=== PATIENT | female | born 1990 | race Caucasian/White ===

== ENCOUNTER 2022-06-07 10:13 | Day surgery (SDC) | payer OTHER | END 2022-06-07 13:00 | disposition home health service (06) | LOC: CSHLD/OP 10:13 | PROVIDERS: ATTEND Obstetrics & Gynecology | DX: O36.8120 Decreased fetal movements, second trimester, not applicable or unspecified (principal); Z3A.25 25 weeks gestation of pregnancy; Z88.0 Allergy status to penicillin | CPT/HCPCS: 76815; 99282 ==

== ENCOUNTER 2022-07-02 21:45 | Emergency (ER) | payer OTHER ==
[2022-07-02 22:42] LABS: #Eosinphils 0.3 10x3/uL (0.0-0.5); #Monocytes 0.9 10x3/uL (0.0-1.1); %Basophils 0.3 % (0.0-2.0); %Eosinophils 2.3 % (0.0-6.0); %Lymphocytes 6.7 % (18.0-47.0); %Monocytes 8.5 % (0.0-10.0); %Neutrophils 81.6 % (40.0-75.0); Mean Corpuscular HGB CONC 33.7 g/dL (32.0-36.0); Mean Corpuscular Hemoglobin 31.3 pg (27.0-33.0); Mean Corpuscular Volume 93.1 fl (81.6-98.3); Mean Platelet Volume 10.4 fl (7.4-10.4); Platelet Count 173 10x3/uL (150-450); RBC Distribution Width 12.2 % (11.5-14.5); Red Blood Cell (RBC) Count 3.19 10x6/uL (3.90-5.03)
[2022-07-02 22:47] LABS: ALT (SGPT) 10 U/L (8-55); AST (SGOT) 10 U/L (5-34); Albumin 3.1 g/dL (3.5-5.0); Alkaline Phosphatase 81 U/L (40-110); Anion Gap 11 mmol/L (10-20); BUN (Urea Nitrogen) 6 mg/dL (7.0-18.7); Bilirubin, Total 0.2 mg/dL (0.2-1.2); Calc. Creatinine Clearance 0 mL/min (70-130); Calcium 8.6 mg/dL (7.8-10.44); Carbon Dioxide 20 mmol/L (22-29); Chloride 108 mmol/L (98-107); Estimated GFR 121; Glucose 104 mg/dL (70-105); Potassium 3.4 mmol/L (3.5-5.1); Protein, Total 6.1 g/dL (6.0-8.3); Sodium 136 mmol/L (136-145)
[2022-07-02 23:15] LABS: SARS-CoV-2 NAA Rapid Test Not Detected (NotDetected)
[2022-07-02] MEDS ORDERED: Acetaminophen 500 MG TAB ONE (23:36)
== END 2022-07-03 01:27 | disposition home or self-care (01) ==
LOC: CSHERS 21:45
DX: O99.513 Diseases of the respiratory system complicating pregnancy, third trimester (principal); J10.1 Influenza due to other identified influenza virus with other respiratory manifestations; Z20.822 Contact with and (suspected) exposure to COVID-19; Z3A.29 29 weeks gestation of pregnancy
CPT/HCPCS: 36415; 71045; 80053; 85025; 93005; 96360

== ENCOUNTER 2022-09-15 01:09 | Inpatient (IN) | payer OTHER ==
[~2022-09-15 01:09] MED LIST: Acetaminophen 500 MG TAB PO PRN; Butorphanol Tartrate 1 MG/ML VIAL SLOW IVP PRN; Carboprost 250 MCG/ML AMP IM PRN; Diphenoxylate HCl/Atropine Tablet PO PRN; Docusate 100 MG CAP PO PRN; HYDROcodone/Acetaminophen 5/325 mg Tablet PO PRN; Ibuprofen 800 MG TAB PO PRN; Lidocaine 1% (PF) 30 ML VIAL SC PRN; Methylergonovine 0.2 MG/ML VIAL IM PRN; Misoprostol 200 MCG TAB PR PRN; Ondansetron PF 4 MG/2 ML Vial IVP PRN; Promethazine HCl 25 MG/ML VIAL IM PRN; Tranexamic Acid 1,000 MG in Sodium Chloride 0.9% 250 ML 250 ML IVPB PRN; hydrALAZINE 20 MG/ML VIAL SLOW IVP PRN
[2022-09-15] MEDS ORDERED: NS w/ Oxytocin 30 units 500 ML IV SCH ×3 (01:15→07:46)
[2022-09-15] MEDS ORDERED: Lactated Ringer's 1,000 ML IV SCH (01:15)
[2022-09-15 01:27] VITALS: BMI 34.1
[2022-09-15 01:45] LABS: Hemoglobin 11.2 g/dL (12.0-15.5); Mean Corpuscular HGB CONC 31.7 g/dL (32.0-36.0); Mean Corpuscular Hemoglobin 28.1 pg (27.0-33.0); Mean Corpuscular Volume 88.7 fl (81.6-98.3); Mean Platelet Volume 10.3 fl (7.4-10.4); Platelet Count 233 10x3/uL (150-450); RBC Distribution Width 13.7 % (11.5-14.5); Red Blood Cell (RBC) Count 3.98 10x6/uL (3.90-5.03); White Blood Cell (WBC) Count 12.9 10x3/uL (3.5-10.5)
[2022-09-15] MEDS ORDERED: Fentanyl 2 mcg/Bup 0.1% Cadd 100 ML ONE (01:52)
[2022-09-15] MEDS ORDERED: Fentanyl 100 MCG/2 ML VIAL ONE (02:03)
[2022-09-15] MEDS ORDERED: Bupivacaine 0.75% W/DEXTROSE 8.25% 2 ML AMP ONE (02:04)
[2022-09-15 02:15] LABS: HBSAg Index 0.14 S/CO (0-0.99); Hep B Surf Ag Non-Reactive S/CO (NonReactive); Syphilis Antibody Nonreactive (Nonreactive); Syphilis Antibody Index 0.05 S/CO (<1.00 Non-Reactive)
[2022-09-15 02:28] LABS: SARS-CoV-2 NAA Rapid Test Not Detected (NotDetected)
[2022-09-15] MEDS ORDERED: diphenhydrAMINE 50 MG/ML VIAL IVP PRN (02:35)
[2022-09-15] MEDS ORDERED: Naloxone HCl 0.4 mg/ml Vial IVP PRN ×2 (02:35)
[2022-09-15] MEDS ORDERED: Ondansetron PF 4 MG/2 ML Vial IVP PRN ×2 (02:35→07:46)
[2022-09-15] MEDS ORDERED: Lactated Ringer's 500 ML IV PRN (02:35)
[2022-09-15] MEDS ORDERED: Promethazine HCl 25 MG/ML VIAL IM PRN ×2 (02:35→07:46)
[2022-09-15] MEDS ORDERED: Acetaminophen 325 MG TAB PO PRN (02:35)
[2022-09-15] MEDS ORDERED: Moisturizing Cream (Eucerin) 113 GM JAR TOP PRN (02:35)
[2022-09-15] MEDS ORDERED: ePHEDrine Sulfate 50 MG/10 ML VIAL SLOW IVP PRN (02:35)
[2022-09-15] MEDS ORDERED: Communication Order-Pharmacy FS SCH (02:45)
[2022-09-15] MEDS ORDERED: Fentanyl 2 mcg/Bupivacaine 0.1% Cassette 100 ML EPIDURAL SCH (02:45)
[2022-09-15] MEDS ORDERED: Benzocaine-Menthol 82.5 ML CAN TOP PRN (07:46)
[2022-09-15] MEDS ORDERED: Milk Of Magnesia 30 ML UDCUP PO PRN (07:46)
[2022-09-15] MEDS ORDERED: Zolpidem Tartrate 5 MG TAB PO PRN (07:46)
[2022-09-15] MEDS ORDERED: Lanolin Ointment 7 GM TUBE TOP PRN (07:46)
[2022-09-15] MEDS ORDERED: Preparation H Ointment 28 GM TUBE PR PRN (07:46)
[2022-09-15] MEDS ORDERED: HYDROcodone/Acetaminophen 5/325 mg Tablet PO PRN ×2 (07:46)
[2022-09-15] MEDS ORDERED: hydrALAZINE 20 MG/ML VIAL SLOW IVP PRN (07:46)
[2022-09-15] MEDS ORDERED: Measles/Mumps/Rubella 10 MCG/0.5 ML VIAL SC ONE (07:46)
[2022-09-15] MEDS ORDERED: Bisacodyl 10 MG SUPP PR PRN (07:46)
[2022-09-15] MEDS ORDERED: Methylergonovine 0.2 MG TAB PO PRN (07:46)
[2022-09-15] MEDS ORDERED: diphenhydrAMINE 25 MG CAP PO PRN (07:46)
[2022-09-15] MEDS ORDERED: Misoprostol 200 MCG TAB VAG PRN (07:46)
[2022-09-15] MEDS ORDERED: Boostrix 0.5 ML (Tdap) VIAL (>/=7 yrs of age) IM ONE (07:46)
[2022-09-15] MEDS: Ferrous Sulfate 325 MG TAB PO SCH ×2 (08:37→17:20)
[2022-09-15] MEDS: Ibuprofen 800 MG TAB PO SCH ×3 (08:42→23:38)
[2022-09-15] MEDS: Prenatal Vitamin 1 TAB PO SCH (09:02)
[2022-09-15] MEDS: Docusate 100 MG CAP PO SCH ×2 (09:02→20:14)
[2022-09-15] MEDS: Acetaminophen 500 MG TAB PO PRN (18:00)
[2022-09-16] MEDS: Acetaminophen 500 MG TAB PO PRN ×2 (03:49→12:40)
[2022-09-16 04:48] LABS: #Basophils 0.1 10x3/uL (0.0-0.2); #Eosinphils 0.2 10x3/uL (0.0-0.5); #Monocytes 0.8 10x3/uL (0.0-1.1); #Neutrophils 7.5 10x3/uL (1.5-8.4); %Basophils 0.7 % (0.0-2.0); %Lymphocytes 18.7 % (18.0-47.0); %Monocytes 7.7 % (0.0-10.0); Hemoglobin 10.1 g/dL (12.0-15.5); Mean Corpuscular HGB CONC 31.5 g/dL (32.0-36.0); Mean Corpuscular Hemoglobin 28.2 pg (27.0-33.0); Mean Corpuscular Volume 89.7 fl (81.6-98.3); Mean Platelet Volume 10.8 fl (7.4-10.4); Platelet Count 187 10x3/uL (150-450); RBC Distribution Width 13.9 % (11.5-14.5); Red Blood Cell (RBC) Count 3.58 10x6/uL (3.90-5.03); White Blood Cell (WBC) Count 10.7 10x3/uL (3.5-10.5)
[2022-09-16 07:52] VITALS: BP 96/52; TEMP 98.1
[2022-09-16] MEDS: Docusate 100 MG CAP PO SCH (08:34)
[2022-09-16] MEDS: Ferrous Sulfate 325 MG TAB PO SCH (08:34)
[2022-09-16] MEDS: Ibuprofen 800 MG TAB PO SCH (08:34)
[2022-09-16] MEDS: Prenatal Vitamin 1 TAB PO SCH (08:34)
== END 2022-09-16 13:20 | disposition home or self-care (01) | DRG 807 ==
LOC: CSHLD 01:09 → CSHPP 08:20
PROVIDERS: ADMIT Obstetrics & Gynecology; ATTEND Obstetrics & Gynecology
PROC: 10D07Z6 Extraction of Products of Conception, Vacuum, Via Natural or Artificial Opening (ICD-10-PCS; principal; 2022-09-15)
DX: O34.211 Maternal care for low transverse scar from previous cesarean delivery (principal); Z37.0 Single live birth; O71.82 Other specified trauma to perineum and vulva; O76 Abnormality in fetal heart rate and rhythm complicating labor and delivery; Z20.822 Contact with and (suspected) exposure to COVID-19; Z3A.39 39 weeks gestation of pregnancy; Z88.0 Allergy status to penicillin
CPT/HCPCS: 51702; 85025; 85027; 86780; 86850; 86900; 86901; 87340; J2405; J2590; J3010; J3490; U0002